=== PATIENT | male | born 1990 | race Caucasian/White ===

== ENCOUNTER 2023-09-04 19:27 | Emergency (ER) | payer BC, OTHER ==
[2023-09-04] MEDS ORDERED: Ketorolac 30 MG/ML SDV IM ONE (19:48)
[2023-09-04] MEDS ORDERED: Acetaminophen 325 MG Tab PO ONE (19:49)
[2023-09-04] MEDS ORDERED: Cyclobenzaprine 10 MG Tab PO ONE (20:01)
== END 2023-09-04 20:34 | disposition home or self-care (01) ==
LOC: JD.ED 19:27
DX: M54.9 Dorsalgia, unspecified (principal); Z88.8 Allergy status to other drugs, medicaments and biological substances
CPT/HCPCS: 96372; 99283; A9270; J1885